=== PATIENT | female | born 1970 | race Caucasian/White ===

== ENCOUNTER → 2022-04-25 | Outpatient (CLI) | payer OTHER, SELFPAY ==
--- NOTE | 2022-04-25 08:55 | VDLE_ITS ---
Reason For Study: LEG EDEMA RIGHT LEFT CFV is compressible, spontaneous, phasic, CFV is compressible, spontaneous, phasic, competent and demonstrates normal competent, and demonstrates normal augmentation. augmentation. FV is compressible, spontaneous, phasic, FV is compressible, spontaneous, phasic, competent and demonstrates normal competent and demonstrates normal augmentation. augmentation. POP V is compressible, spontaneous, phasic, POP V is compressible, spontaneous, phasic, competent and demonstrates normal competent and demonstrates normal augmentation. augmentation. T/P Trunk is compressible. T/P Trunk is compressible. PTV is compressible. PTV is compressible. RT PerV is compressible. LT PerV is compressible. SFJ is competent and measures 0.45 x 0.53 cm. SFJ is competent and measures 0.52 x 0.56 cm. GSV proximal thigh measures 0.47 x 0.50 cm. GSV proximal thigh measures 0.27 x 0.27 cm. GSV at knee measures 0.30 x 0.33 cm. GSV at knee measures 0.25 x 0.30 cm. GSV is competent throughout. GSV is competent throughout. SSV proximal calf is competent and measures SSV proximal calf is competent and measures 0.16 x 0.15 cm. 0.45 x 0.42 cm. Procedure Exam performed in department. This is a venous duplex using B-mode, color flow and spectral Doppler. The exam was diagnostic. VL/Venous Duplex US - Doug Extrem Interpretation Summary No evidence for acute deep venous thrombosis bilateral lower extremities with p atent and compressible bilateral great saphenous veins. Competent bilateral great and sma ll saphenous veins with dimensions as noted. Ordering Physician: Humble Mckenzie Performed By: Deshawn Weiss RVMargaret
--- NOTE | 2022-04-25 08:55 | ART_ITS ---
Reason For Study: Claudication Procedure A bilateral lower extremity continuous wave Doppler with analog waveform analysis,segmental pressures,and ankle brachial indexes without exercise. Left Segmental Pressures Left posterior tibial artery = 152mmHg. Left dorsalis pedis artery = 161mmHg. Left digit = 64 mmHg. The left posterior tibial artery waveforms are triphasic. The left dorsalis pedis waveforms are triphasic. Right Segmental Pressures Right brachial= 140mmHg. Right posterior tibial artery = 148mmHg. Right dorsalis pedis artery = 154mmHg. Right digit = 113 mmHg. The right posterior tibial artery waveforms are triphasic. The right dorsalis pedis waveforms are triphasic. Indices The right ankle brachial index by the posterior tibial artery is 1.06. The right ankle brachial index by the dorsalis pedis is 1.10. The right digital-brachial index is 0.81. The left ankle brachial index by the posterior tibial artery is 1.09. The left ankle brachial index by the dorsalis pedis is 1.15. The left digital-brachial index is 0.46. VL/Lower Ext Art Exam w/o Exercis Interpretation Summary Normal right lower extremity posterior tibialis and dorsalis pedis ankle-brachi al indices of 1.06 and 1.1 at rest with normal triphasic Doppler waveforms. Normal right digital brachial index of 0.81 Normal left lower extremity posterior tibialis and dorsalis pedis ankle-brachia l indices of 1.09 and 1.15 respectively with normal triphasic Doppler waveforms. Abnormal left digital brachial indices suggesting possible distal small vessel disease versus temperature affect. Clinical correlation would be appropriate. Ordering Physician: Whit Mckenzie Referring Physician: HWIT MCKENZIE DPM Performed By: Deshawn Weiss RVT
== END | disposition home or self-care (01) ==
LOC: CVS 08:52
PROVIDERS: Visit Provider Student in an Organized Health Care Education/Training Program
DX: I73.89 Other specified peripheral vascular diseases (principal); G60.8 Other hereditary and idiopathic neuropathies
CPT/HCPCS: 93923; 93970